=== PATIENT | male | born 1930 | race Caucasian/White ===

== ENCOUNTER 2016-05-06 11:14 | Emergency (ER) | payer MEDICARE, OTHER ==
[2016-05-06 12:31] LABS: HEMOGLOBIN 9.4 gm/dl (14.0-17.5); RED BLOOD COUNT 3.52 M/UL (4.20-5.50); WHITE BLOOD COUNT 6.5 K/UL (4.5-11.0)
[2016-05-06 12:58] LABS: BUN/CREATININE RATIO 20 (0-10)
== END 2016-05-06 23:10 | disposition home or self-care (01) ==
LOC: ER1 11:14
PROVIDERS: Emergency Medicine
DX: J44.1 Chronic obstructive pulmonary disease with (acute) exacerbation (principal); J18.9 Pneumonia, unspecified organism; E87.2 Acidosis; R09.02 Hypoxemia; I10 Essential (primary) hypertension; Z87.891 Personal history of nicotine dependence; Z79.82 Long term (current) use of aspirin; Z79.899 Other long term (current) drug therapy; Z79.84 Long term (current) use of oral hypoglycemic drugs
CPT/HCPCS: 36415; 36600; 71020; 80053; 82550; 82553; 82803; 83605; 83690; 83874; 84484; 85025; 87040; 93005; 94640; 94664; 96365; 96366; 96367; 99285; J0456; J0696; J2930; J7050; Q9963

== ENCOUNTER 2016-05-08 12:57 | Inpatient (IN) | payer MEDICARE, OTHER ==
[~2016-05-08] VITALS: Ht 172.7 cm; Wt 102.8 kg
[2016-05-08 15:46] LABS: HEMOGLOBIN 9.4 gm/dl (14.0-17.5); RED BLOOD COUNT 3.53 M/UL (4.20-5.50); WHITE BLOOD COUNT 7.6 K/UL (4.5-11.0)
[2016-05-08 16:03] LABS: BUN/CREATININE RATIO 22 (0-10)
[2016-05-09] MEDS ORDERED: AMOX TR-K CLV1 EAC4 PO (09:25)
[2016-05-09] MEDS ORDERED: PREDNISONE5 MG PO (09:25)
[2016-05-09] MEDS ORDERED: ASPIRIN EC81 MG PO (09:26)
[2016-05-09] MEDS ORDERED: CEFDINIR300 MG PO (09:27)
[2016-05-09] MEDS ORDERED: HYDROCHLOROTHIA25 MG PO (09:28)
[2016-05-09] MEDS ORDERED: METOPROLOL TART25 MG PO (09:29)
[2016-05-09] MEDS ORDERED: ONCE DAILY1 EACH PO (09:29)
[2016-05-09] MEDS ORDERED: METFORMIN HCL500 MG PO (09:31)
[2016-05-09] MEDS ORDERED: VENTOLIN HFA 66.7 GM INH (09:31)
[2016-05-09] MEDS ORDERED: FLOMAX0.4 MG PO (09:32)
[2016-05-09] MEDS ORDERED: CRESTOR 10 MG T10 MG PO (09:32)
[2016-05-09] MEDS ORDERED: COLACE 100MG C100 MG PO (09:33)
[2016-05-10 05:55] LABS: HEMOGLOBIN 8.7 gm/dl (14.0-17.5); RED BLOOD COUNT 3.28 M/UL (4.20-5.50)
[2016-05-10 05:56] LABS: WHITE BLOOD COUNT 9.9 K/UL (4.5-11.0)
[2016-05-10 06:07] LABS: BUN/CREATININE RATIO 36 (0-10)
[2016-05-12] MEDS ORDERED: MEDROL DOSEPAK 24 MG PO (10:00)
[2016-05-12] MEDS ORDERED: ZITHROMAX250 MG PO (10:07)
[2016-05-12] MEDS ORDERED: CEFUROXIME500 MG PO (10:12)
[2016-05-12] MEDS ORDERED: IPRAT-ALBUT 0.5-3 ML INH (10:13)
[2016-05-12] MEDS ORDERED: SPIRIVA18 MCG INH (10:14)
[2016-05-12] MEDS ORDERED: SYMBICORT 160-1 INHA INH (10:15)
== END 2016-05-12 13:01 | disposition home or self-care (01) | DRG 189 ==
LOC: ER1 12:57 → MED SURG 4 20:21 → ZEROF 20:21 → MED SURG 4 05-09 19:52
PROVIDERS: Emergency Medicine; Family Medicine; ADMIT Hospitalist
DX: J96.01 Acute respiratory failure with hypoxia (principal); J44.1 Chronic obstructive pulmonary disease with (acute) exacerbation; E87.2 Acidosis; E11.65 Type 2 diabetes mellitus with hyperglycemia; T38.0X5A Adverse effect of glucocorticoids and synthetic analogues, initial encounter; I27.2 Other secondary pulmonary hypertension; I10 Essential (primary) hypertension; E78.5 Hyperlipidemia, unspecified; N40.0 Benign prostatic hyperplasia without lower urinary tract symptoms; D64.9 Anemia, unspecified
CPT/HCPCS: ECHO; 36415; 36600; 71010; 71020; 80048; 80053; 82550; 82553; 82607; 82728; 82746; 82803; 82962; 83036; 83540; 83550; 83605; 83690; 83874; 83880; 84484; 85025; 85027; 87040; 87205; 87278; 87899; 93005; 93306; 94640; 94664; 94760; 96361; 96365; 96366; 96367; 96375; 96376; 99285; J0456; J0696; J2920; J2930; J7030; J7050; J7509; Q9963

== ENCOUNTER 2016-05-20 10:42 | Emergency (ER) | payer MEDICARE, OTHER ==
[~2016-05-20 10:42] MED LIST: AMOX TR-K CLV1 EAC4 PO; ASPIRIN EC81 MG PO; CEFDINIR300 MG PO; CEFUROXIME500 MG PO; COLACE 100MG C100 MG PO; CRESTOR 10 MG T10 MG PO; FLOMAX0.4 MG PO; HYDROCHLOROTHIA25 MG PO; IPRAT-ALBUT 0.5-3 ML INH; MEDROL DOSEPAK 24 MG PO; METFORMIN HCL500 MG PO; METOPROLOL TART25 MG PO; ONCE DAILY1 EACH PO; PREDNISONE5 MG PO; SPIRIVA18 MCG INH; SYMBICORT 160-1 INHA INH; VENTOLIN HFA 66.7 GM INH; ZITHROMAX250 MG PO
[2016-05-20 11:13] LABS: HEMOGLOBIN 8.6 gm/dl (14.0-17.5); RED BLOOD COUNT 3.45 M/UL (4.20-5.50)
[2016-05-20 11:37] LABS: BUN/CREATININE RATIO 18 (0-10)
== END 2016-05-20 13:40 | disposition home or self-care (01) ==
LOC: ER1 10:42
PROVIDERS: Radiology Radiation Oncology
DX: J44.9 Chronic obstructive pulmonary disease, unspecified (principal); D64.9 Anemia, unspecified; B37.9 Candidiasis, unspecified; Z79.82 Long term (current) use of aspirin; Z79.899 Other long term (current) drug therapy
CPT/HCPCS: 36415; 71010; 80053; 82550; 82553; 82803; 83874; 84484; 85025; 93005; 94664; 99285

== ENCOUNTER 2020-08-06 11:43 | Emergency (ER) | payer MEDICARE, OTHER ==
[~2020-08-06 11:43] MED LIST changes: +ASPIRIN CHEWABL81 MG PO; +AUGMENTIN 875-1 EACH PO; +BUDESONIDE0.5 MG/2 M NEB; +COLACE100 MG PO; +DESITIN CREAM 660 GM EXT; +FERROUS SULFAT324 MG PO; +FERROUS SULFAT325 MG PO; +FISH OIL 1,0001 EAC1 PO; +FLOMAX 0.4 MG0.4 MG PO; +FUROSEMIDE80 MG PO; +GARLIC1000 MG PO; +GLUCOPHAGE 500500 MG PO; +HUMALOG100 UNIT/2 SC; +K-TAB ER10 MEQ PO; +KEFLEX CAP 500500 MG PO; +LANTUS SOL100 UNIT/1 SQ; +LANTUS100 UNIT/1 SQ; +LASIX20 MG PO; +LIPITOR TAB 2020 MG PO; +LOPRESSOR 50 MG50 MG PO; +PROTONIX 40 MG40 M1 PO; +TYLENOL 325MG325 MG PO; +ZYVOX600 MG PO
[2020-08-06 12:11] LABS: HEMOGLOBIN 10.9 gm/dl (14.0-17.5); RED BLOOD COUNT 3.65 M/UL (4.20-5.50)
[2020-08-06 12:49] LABS: BUN/CREATININE RATIO 15 (0-10)
== END 2020-08-06 18:40 ==
LOC: ER1 11:43
PROVIDERS: Family Medicine
DX: R53.1 Weakness (principal); I25.10 Atherosclerotic heart disease of native coronary artery without angina pectoris; F03.90 Unspecified dementia, unspecified severity, without behavioral disturbance, psychotic disturbance, mood disturbance, and anxiety; I11.0 Hypertensive heart disease with heart failure; I50.9 Heart failure, unspecified; J44.9 Chronic obstructive pulmonary disease, unspecified; E11.9 Type 2 diabetes mellitus without complications; E78.5 Hyperlipidemia, unspecified; Z79.82 Long term (current) use of aspirin; Z79.899 Other long term (current) drug therapy; Z88.8 Allergy status to other drugs, medicaments and biological substances
CPT/HCPCS: 70450; 70496; 70498; 71045; 80053; 81001; 82550; 82553; 83605; 83735; 83874; 84439; 84443; 84484; 85025; 85610; 93005; 99285; Q9965